=== PATIENT | female | born 1975 | race Asian ===

== ENCOUNTER → 2022-08-06 12:05 | Outpatient (CLI) | payer OTHER, BC, SELFPAY ==
--- NOTE | 2022-08-06 12:10 | DI.RAD.S_ITS ---
PROCEDURE: XR CERVICAL SPINE 4V OR 5V INDICATIONS: NECK PAIN TECHNIQUE: 5 views of the cervical spine acquired. COMPARISON: None. FINDINGS: Bones: No fractures or dislocations to the C7 level. There is moderate bilateral neural foraminal narrowing at C5-6 due to degenerative osteophytosis at this level. Reversal of the normal cervical lordosis. Mild disc height loss at all levels. No significant facet disease. Soft tissues: No prevertebral soft tissue swelling. IMPRESSION: Mild, multilevel degenerative disc disease, most prominent at C5-6 with osteophytosis narrowing the bilateral neural foramen. Dictated by: Kike Tate M.D. on 08/06/2022 at 12:48 Approved by: Kike Tate M.D. on 08/06/2022 at 12:52
== END ==
PROVIDERS: PCP Physician Assistant; Referring Provider Physical Medicine & Rehabilitation; Visit Provider Physical Medicine & Rehabilitation
DX: M48.02 Spinal stenosis, cervical region (principal); M50.322 Other cervical disc degeneration at C5-C6 level; M47.812 Spondylosis without myelopathy or radiculopathy, cervical region
CPT/HCPCS: 72050